=== PATIENT | female | born 1965 | race Two or more races ===

== ENCOUNTER 2024-06-23 12:54 | Inpatient (IN) | payer OTHER ==
[~2024-06-23] VITALS: Ht 165.1 cm; Wt 68.9 kg
[2024-06-23] MEDS ORDERED: DILTIAZEM ER300 MG PO (13:21)
[2024-06-23] MEDS ORDERED: SYNTHROID100 MCG PO (13:21)
[2024-06-23] MEDS ORDERED: PRAVASTATIN SOD10 MG PO (13:21)
[2024-06-23] MEDS ORDERED: EZETIMIBE10 MG PO (13:21)
[2024-06-23] MEDS ORDERED: HYDROCHLOROTH12.5 M2 PO (13:21)
[2024-06-23] MEDS ORDERED: AZELASTINE137 MCG/0. NS (13:22)
--- NOTE | 2024-06-23 13:22 | NUR ---
PTE REFIEFE DIFICULTADA AL RESPIRA ACOMPANADO DE TOS CON FLEMA, DESDE HACE VARIOS MEYER, SE LE DOC S/V Y SE UBICA EN LA FANI DE ESPERA.
[2024-06-23] MEDS ORDERED: LEVALBUTEROL HCL 1.25 MG/3 ML SOLUTION IH SCH (13:57)
[2024-06-23] MEDS ORDERED: AZITHROMYCIN 500 MG VIAL IV ONE (14:00)
[2024-06-23] MEDS ORDERED: GUAIFENESIN/DEXTROMETHORPHAN 100MG/10ML BLIST.PACK PO ONE (14:00)
[2024-06-23] MEDS ORDERED: METHYLPREDNISOLONE SOD SUCC 125 MG VIAL IV ONE (14:00)
[2024-06-23] MEDS ORDERED: 0.9 % SODIUM CHLORIDE 1,000 ML IV SCH (14:00)
--- NOTE | 2024-06-23 14:09 | NUR ---
SE ORIENTA A PACIENTE SOBRE TRATAMIENTO MEDICO. SE COLECTAN MUESTRAS DE LABORATORIO Y SE CANALIZA BAJO MEDIDAS ASEPTICAS. SE ADMINISTRAN MEDICAMENTOS HEENA ORDEN MEDICA. SE NOTIFICAN ABGS.
[2024-06-23 14:31] LABS: ABG PO2 87.1 mmHg (80-100); ABG pCO2 33.6 mmHg (35-45); BASE EXCESS -1.7 mmol/l; BICARBONATE 21.8 mmol/l (23-25); SaO2 96.9 %; Tco2 22.8 mmol/l
[2024-06-23 14:43] LABS: o2 21 %
[2024-06-23 14:44] LABS: allen test SATISFACTORY; puncture site RADIAL RIGHT
[2024-06-23 14:48] LABS: HEMATOCRIT 37.8 % (36.0-45.00); HEMOGLOBIN 12.7 g/dL (12.0-15.00); MEAN CELL VOLUME 95.9 fL (80.00-100.00); MEAN CORPUSCULAR HEMOGLOBIN 32.3 pg (27.00-32.0); MEAN CORPUSCULAR HGB CONC 33.7 g/dl (32.0-36.0); PLATELET COUNT 192 K/uL (150-450); RED BLOOD COUNT 3.94 M/uL (4.00-6.00)
[2024-06-23 15:29] LABS: ALBUMIN 3.2 gm/dL (3.4-5.0); BILIRUBIN TOTAL 0.32 mg/dL (0.3-1.2); CALCIUM 9.6 mg/dL (8.5-10.1); CREATININE SERUM 0.9 mg/dL (0.55-1.02); GFR 63.87; GLOBULINA 4.7 G/DL (2.4-3.5); POTASSIUM 3.84 mEq/L (3.5-5.1); TOTAL PROTEIN 7.9 gm/dL (6.4-8.2)
[2024-06-23] MEDS ORDERED: CEFTRIAXONE SODIUM 1,000 MG VIAL IV ONE (15:30)
[2024-06-23 18:44] LABS: INR 0.97; PARTIAL THROMBOPLASTIN TIME 30.2 SECONDS (22.0-34.0); PROTHROMBIN TIME 10.6 SECONDS (9.0-11.5)
[2024-06-23 19:21] LABS: PH,URINE 6.5 (5.0-8.0); URINE APPEARANCE Clear; URINE BILIRRUBIN Negative (NEGATIVE); URINE BLOOD Negative; URINE COLOR Yellow; URINE KETONE Trace (NEGATIVE); URINE LEUKOCYTE Negative; URINE NITRATE Negative; URINE PROTEIN Trace (NEGATIVE); URINE UROBILINOGEN 0.2 E.U./dl
[2024-06-23 19:24] LABS: URINE BACTERIA 7.3 uL (0.0-1933); URINE EPITHELIAL CELLS 5.2 uL (0.0-38.8); URINE WBC 6.7 uL (0.0-23.2)
[2024-06-23 19:47] LABS: URINE GLUCOSE >=1000 MG/DL (NEGATIVE); URINE RBC 0.7 uL (0.0-20.8)
[2024-06-23 23:46] VITALS: BP 160/82; O2SAT 95
[2024-06-24 04:08] VITALS: BP 144/79
[2024-06-24 05:49] LABS: HEMATOCRIT 36.2 % (36.0-45.00); HEMOGLOBIN 12.4 g/dL (12.0-15.00); MEAN CORPUSCULAR HEMOGLOBIN 32.8 pg (27.00-32.0); MEAN CORPUSCULAR HGB CONC 34.2 g/dl (32.0-36.0); PLATELET COUNT 189 K/uL (150-450); RED BLOOD COUNT 3.77 M/uL (4.00-6.00); RED CELL DISTRIBUTION WIDTH 12.6 % (11.5-14.5)
[2024-06-24] MEDS ORDERED: LEVOTHYROXINE SODIUM 100 MCG TABLET PO SCH (06:00)
[2024-06-24 07:05] LABS: ALBUMIN 2.8 gm/dL (3.4-5.0); BILIRUBIN TOTAL 0.22 mg/dL (0.3-1.2); CHOL HDL RATIO 3.1 (0-5.0); CREATININE SERUM 0.69 mg/dL (0.55-1.02); GFR 86.78; GLOBULINA 3.5 G/DL (2.4-3.5); MAGNESIUM 2.2 mg/dL (1.8-2.4); PHOSPHOROUS 3.1 mg/dL (2.5-4.9); POTASSIUM 4.08 mEq/L (3.5-5.1); TOTAL PROTEIN 6.3 gm/dL (6.4-8.2)
[2024-06-24] MEDS ORDERED: AZITHROMYCIN 500 MG VIAL IV SCH (09:00)
[2024-06-24] MEDS ORDERED: HYDROCHLOROTHIAZIDE 12.5 MG CAPSULE PO SCH (09:00)
[2024-06-24] MEDS ORDERED: PANTOPRAZOLE SODIUM 40 MG TABLET.DR PO SCH (09:00)
[2024-06-24] MEDS ORDERED: DILTIAZEM HCL 300 MG CAP.SR.24H PO SCH (09:00)
[2024-06-24] MEDS ORDERED: CEFTRIAXONE SODIUM 2,000 MG VIAL IV SCH (09:00)
[2024-06-24 09:24] VITALS: BP 164/82
[2024-06-24] MEDS ORDERED: IRBESARTAN 150 MG TABLET PO SCH (12:34)
[2024-06-24] MEDS ORDERED: DEXTROSE 50 % IN WATER 0.5 G/ML DISP.SYRIN IV PRN (12:45)
[2024-06-24] MEDS ORDERED: INSULIN LISPRO 1,000 UNIT/10 ML UNITS SUBCUTANEO PRN (12:45)
[2024-06-24] MEDS ORDERED: RINGERS SOLUTION,LACTATED 1,000 ML IV SCH (12:45)
[2024-06-24] MEDS ORDERED: ATORVASTATIN CALCIUM 20 MG TABLET PO SCH (17:00)
[2024-06-24 18:56] VITALS: BP 124/67; O2SAT 95
[2024-06-25 01:28] VITALS: BP 128/65; O2SAT 94
[2024-06-25 08:10] LABS: HEMATOCRIT 37.8 % (36.0-45.00); HEMOGLOBIN 12.9 g/dL (12.0-15.00); MEAN CORPUSCULAR HEMOGLOBIN 32.7 pg (27.00-32.0); PLATELET COUNT 208 K/uL (150-450); RED BLOOD COUNT 3.94 M/uL (4.00-6.00); RED CELL DISTRIBUTION WIDTH 13.3 % (11.5-14.5)
[2024-06-25 08:18] VITALS: BP 147/80
[2024-06-25 09:00] LABS: BILIRUBIN TOTAL 0.29 mg/dL (0.3-1.2); CALCIUM 9.1 mg/dL (8.5-10.1); CREATININE SERUM 0.96 mg/dL (0.55-1.02); GFR 59.28; GLOBULINA 3.5 G/DL (2.4-3.5); POTASSIUM 4.13 mEq/L (3.5-5.1); TOTAL PROTEIN 6.5 gm/dL (6.4-8.2)
[2024-06-25 18:13] VITALS: BP 144/73; O2SAT 100
[2024-06-26 01:43] VITALS: BP 150/77; O2SAT 98
[2024-06-26 09:19] VITALS: BP 134/76
[2024-06-26] MEDS ORDERED: AZITHROMYCIN500 MG PO (12:16)
[2024-06-26] MEDS ORDERED: CEFDINIR300 MG PO (12:16)
[2024-06-26] MEDS ORDERED: INTESTINEX680 M1 PO (12:17)
[2024-06-26] MEDS ORDERED: DILTIAZEM ER300 MG PO (12:18)
[2024-06-26] MEDS ORDERED: HYDROCHLOROTH12.5 MG PO (12:18)
[2024-06-26] MEDS ORDERED: XOPENEX HFA15 GM IH (12:19)
== END 2024-06-26 14:39 | disposition home or self-care (01) | DRG 194 ==
LOC: ER 12:57 → MEDJ 18:52
PROVIDERS: General Practice; ADMIT Internal Medicine; ATTEND Internal Medicine
PROC: BW24ZZZ Computerized Tomography (CT Scan) of Chest and Abdomen (ICD-10-PCS; principal; 2024-06-23)
DX: J18.9 Pneumonia, unspecified organism (principal); C92.01 Acute myeloblastic leukemia, in remission; Z94.81 Bone marrow transplant status; I10 Essential (primary) hypertension; E03.9 Hypothyroidism, unspecified; E78.5 Hyperlipidemia, unspecified; E11.65 Type 2 diabetes mellitus with hyperglycemia; Z79.4 Long term (current) use of insulin